=== PATIENT | female | born 1955 | race Caucasian/White ===

== ENCOUNTER → 2020-12-19 | Outpatient (CLI) | payer MEDICARE ==
--- NOTE | 2020-12-19 14:23 | MR ---
EXAMINATION TYPE: MR dillon wo con DATE OF EXAM: 12/19/2020 2:00 PM COMPARISON: NONE HISTORY: Neck pain and Stiffness, Arms fall asleep, Pain in Hands x 10 years. Middle Lower Back Pain x 3 years Multiplanar MultiSpin echo imaging of the cervical spine was performed. Comparison: none C2-C3: No evidence for degenerative disc disease. No disc bulge/herniation or protrusion. No Canal stenosis. Foramina are patent bilaterally. C3-C4: No evidence for degenerative disc disease. No disc bulge/herniation or protrusion. No Canal stenosis. Foramina are patent bilaterally. C4-C5: Mild to moderate decreased signal and loss of height compatible with degenerative disc disease . Right paracentral disc bulge with mild effacement ventral thecal sac and minimal ventral CORD conta ct. No evidence for compressive myelopathy or central stenosis. Degenerative change of the cervical a pophyseal joints resulting in right greater than left foraminal encroachment. C5-C6: Moderate to severe disc desiccation. Posterior disc bulge greatest posterior centrally and to the left with encapsulating spur resulting in disc endplate complex. Mild to moderate central stenosi s identified. No evidence for compressive myelopathy. Severe bilateral neural foraminal encroachment. C6-C7: Mild disc desiccation noted without significant disc bulge. No herniation or protrusion. Bilat eral foraminal encroachment right greater than left. C7-T1: Moderate disc desiccation with the posterocentral disc bulge. Mild effacement ventral thecal s ac. No evidence for central stenosis. No issac disc herniation. Degenerative endplate marrow change. Foramina are patent bilaterally. Cervical segments are intact. There is normal alignment. Cervical spinal cord is of normal signal. Craniovertebral junction relationships are within normal limits. IMPRESSION: 1. Multilevel degenerative disc disease. 2. Central stenosis at C5-6 as noted above. Multilevel foraminal encroachment. EXAMINATION TYPE: MR dillno wo con DATE OF EXAM: 12/19/2020 2:00 PM COMPARISON: NONE HISTORY: Neck pain and Stiffness, Arms fall asleep, Pain in Hands x 10 years. Middle Lower Back Pain x 3 years Multiplanar, MultiSpin echo imaging of the lumbar spine was performed. L1-L2: There is mild decreased signal ossified compatible degenerative disc disease. Mild right parac entral disc bulge without central stenosis, disc herniation or lateral recess stenosis. Mild facet brannon int arthropathy without foraminal encroachment. L2-L3: Normal disc appearance without desiccation. No herniation, protrusion or disc bulging. No ca nal stenosis is present. Foramina are patent bilaterally. L3-L4: Moderate disc desiccation. Broad-based posterocentral subligamentous disc herniation effaces t he ventral thecal sac and results in a mild central stenosis and bilateral lateral recess stenosis. F acet joint arthropathy contributes to mild right greater than left foraminal encroachment. Degenerati ve endplate marrow changes identified. L4-L5: There is mild decreased signal ossified compatible degenerative disc disease. Mild right parac entral disc bulge without central stenosis, disc herniation or lateral recess stenosis. Mild facet brannon int arthropathy without foraminal encroachment. L5-S1: Normal disc appearance without desiccation. No herniation, protrusion or disc bulging. No ca nal stenosis is present. Foramina are patent bilaterally. Lumbar segments are intact. No paraspinal masses are identified. Conus medullaris has a normal appe arance. IMPRESSION: 1. Multilevel degenerative disc disease. 2. Central stenosis identified at L3-4 as noted above.
== END | disposition home or self-care (01) ==
LOC: RADMRIMAIN 12:39
PROVIDERS: ATTEND Orthopaedic Surgery
DX: M51.36 Other intervertebral disc degeneration, lumbar region (principal); M48.02 Spinal stenosis, cervical region; M48.061 Spinal stenosis, lumbar region without neurogenic claudication
CPT/HCPCS: 72141; 72148

== ENCOUNTER → 2021-03-27 | Outpatient (CLI) | payer MEDICARE ==
--- NOTE | 2021-03-27 12:56 | XR ---
EXAMINATION TYPE: XR abdomen 2V DATE OF EXAM: 03/27/2021 COMPARISON: NONE HISTORY: Pain/fall FINDINGS: Cholecystectomy clips. Stool and gas are scattered throughout the colon. Nonspecific, nonob structive bowel gas pattern. No dilated loops of large or small bowel. Degenerative changes of the hi ps and lower lumbar spine. Lung bases appear clear. IMPRESSION: 1. Nonspecific, nonobstructive bowel gas pattern. 2. Cholecystectomy.
--- NOTE | 2021-03-27 13:00 | XR ---
EXAMINATION TYPE: XR chest 2V DATE OF EXAM: 03/27/2021 COMPARISON: NONE HISTORY: Left-sided pain after fall TECHNIQUE: Frontal and lateral views of the chest are obtained. FINDINGS: Heart size is within normal limits. No focal consolidation, pneumothorax or pleural effusi on. Mild crowding of the pulmonary interstitium may be due to low lung volumes. Cholecystectomy clips . Degenerative changes of the thoracic spine. IMPRESSION: 1. No acute pulmonary disease. 2. Cholecystectomy.
== END | disposition home or self-care (01) ==
LOC: RADXRMAIN 11:18
PROVIDERS: ATTEND Nurse Practitioner Family
DX: Z90.49 Acquired absence of other specified parts of digestive tract (principal); R07.9 Chest pain, unspecified; W19.XXXA Unspecified fall, initial encounter
CPT/HCPCS: 71046; 74019

== ENCOUNTER 2021-05-28 12:50 | Emergency (ER) | payer MEDICARE ==
[2021-05-28 13:03] VITALS: RESP 18
--- NOTE | 2021-05-28 13:28 | ED ---
General Adult HPI - General Chief complaint: Abdominal Pain Stated complaint: Lt Side Pain Time Seen by Provider: 05/28/21 13:07 Source: patient, RN notes reviewed Mode of arrival: ambulatory Limitations: no limitations - History of Present Illness Initial comments: Patient is a pleasant 65-year-old female presenting to the emergency Department with left-sided abdominal discomfort. Onset of symptoms was around 4 months ago a couple of days after a fall. Discomfort has been persistent. Patient did have rib x-rays that revealed no abnormality. Patient has had discomfort persistent otherwise. Patient has had a couple episodes of nausea vomiting however not frequently. No fever. No constipation or diarrhea. No history of similar symptoms prior to this. No dyspnea. Patient was scheduled for CT however this has been delayed several times. - Related Data Allergies Allergy/AdvReac Type Severity Reaction Status Date / Time No Known Allergies Allergy Verified 05/28/21 13:03 Review of Systems ROS Statement: Those systems with pertinent positive or pertinent negative responses have been documented in the HPI. ROS Other: All systems not noted in ROS Statement are negative. Constitutional: Denies: fever Eyes: Denies: eye pain ENT: Denies: ear pain Respiratory: Denies: cough, dyspnea Cardiovascular: Denies: chest pain Endocrine: Denies: fatigue Gastrointestinal: Reports: as per HPI, abdominal pain Genitourinary: Denies: dysuria, frequency, hematuria Musculoskeletal: Denies: back pain Skin: Denies: rash Neurological: Denies: weakness Past Medical History Past Medical History: Diabetes Mellitus, Hypertension Additional Past Medical History / Comment(s): fibromyalgia History of Any Multi-Drug Resistant Organisms: None Reported Past Surgical History: Cholecystectomy, Orthopedic Surgery, Tubal Ligation Past Psychological History: No Psychological Hx Reported Smoking Status: Former smoker Past Alcohol Use History: None Reported Past Drug Use History: None Reported General Exam Limitations: no limitations General appearance: alert, in no apparent distress Head exam: Present: normocephalic Eye exam: Present: normal appearance Neck exam: Present: normal inspection Respiratory exam: Present: normal lung sounds bilaterally, chest wall tenderness (Mild tenderness lower ribs anterior lateral and posterior) Cardiovascular Exam: Present: regular rate, normal rhythm GI/Abdominal exam: Present: soft, tenderness (Mild tenderness left upper quadrant) Extremities exam: Present: normal inspection. Absent: pedal edema, calf tenderness Neurological exam: Present: alert Psychiatric exam: Present: normal affect, normal mood Skin exam: Present: normal color Course Vital Signs 05/28/21 12:57 Temperature 98.7 F Pulse Rate 91 Respiratory 18 Rate Blood Pressure 139/73 O2 Sat by Pulse 95 Oximetry EKG Findings - EKG Comments: EKG Findings:: Normal sinus rhythm with rate of 82. [place] 162. QRS 92. QT 368. QTC 429. Normal axis. Normal QRS. No acute ST change. Medical Decision Making - Medical Decision Making Patient reevaluated and resting comfortably in bed. Patient updated on results and need for follow-up. Patient states she does have an appointment with her doctor tomorrow. - Lab Data Result diagrams: 05/28/21 13:30 05/28/21 13:30 Lab Results 05/28/21 05/28/21 05/28/21 Range/Units 13:30 13:30 13:30 WBC 6.8 (3.8-10.6) k/uL RBC 3.97 (3.80-5.40) m/uL Hgb 12.5 (11.4-16.0) gm/dL Hct 38.8 (34.0-46.0) % MCV 97.6 (80.0-100.0) fL MCH 31.4 (25.0-35.0) pg MCHC 32.2 (31.0-37.0) g/dL RDW 13.7 (11.5-15.5) % Plt Count 219 (150-450) k/uL MPV 7.5 Neutrophils % 50 % Lymphocytes % 36 % Monocytes % 6 % Eosinophils % 4 % Basophils % 1 % Neutrophils # 3.4 (1.3-7.7) k/uL Lymphocytes # 2.4 (1.0-4.8) k/uL Monocytes # 0.4 (0-1.0) k/uL Eosinophils # 0.3 (0-0.7) k/uL Basophils # 0.1 (0-0.2) k/uL PT 10.6 (9.0-12.0) sec INR 1.0 (<1.2) APTT 23.7 (22.0-30.0) sec Sodium (137-145) mmol/L Potassium (3.5-5.1) mmol/L Chloride (98-107) mmol/L Carbon Dioxide (22-30) mmol/L Anion Gap mmol/L BUN (7-17) mg/dL Creatinine (0.52-1.04) mg/dL Est GFR (CKD-EPI)AfAm (>60 ml/min/1.73 sqM) Est GFR (CKD-EPI)NonAf (>60 ml/min/1.73 sqM) Glucose (74-99) mg/dL Calcium (8.4-10.2) mg/dL Total Bilirubin (0.2-1.3) mg/dL AST (14-36) U/L ALT (4-34) U/L Alkaline Phosphatase (38-126) U/L Creatine Kinase (30-135) U/L Troponin I (0.000-0.034) ng/mL Total Protein (6.3-8.2) g/dL Albumin (3.5-5.0) g/dL Amylase (30-110) U/L Lipase (23-300) U/L Urine Color Light Yellow Urine Appearance Clear (Clear) Urine pH 5.0 (5.0-8.0) Ur Specific [place] 1.009 (1.001-1.035) Urine Protein Negative (Negative) Urine Glucose (UA) Negative (Negative) Urine Ketones Negative (Negative) Urine Blood Negative (Negative) Urine Nitrite Negative (Negative) Urine Bilirubin Negative (Negative) Urine Urobilinogen <2.0 (<2.0) mg/dL Ur Leukocyte Esterase Negative (Negative) 05/28/21 05/28/21 Range/Units 13:30 13:30 WBC (3.8-10.6) k/uL RBC (3.80-5.40) m/uL Hgb (11.4-16.0) gm/dL Hct (34.0-46.0) % MCV (80.0-100.0) fL MCH (25.0-35.0) pg MCHC (31.0-37.0) g/dL RDW (11.5-15.5) % Plt Count (150-450) k/uL MPV Neutrophils % % Lymphocytes % % Monocytes % % Eosinophils % % Basophils % % Neutrophils # (1.3-7.7) k/uL Lymphocytes # (1.0-4.8) k/uL Monocytes # (0-1.0) k/uL Eosinophils # (0-0.7) k/uL Basophils # (0-0.2) k/uL PT (9.0-12.0) sec INR (<1.2) APTT (22.0-30.0) sec Sodium 137 (137-145) mmol/L Potassium 4.3 (3.5-5.1) mmol/L Chloride 104 (98-107) mmol/L Carbon Dioxide 24 (22-30) mmol/L Anion Gap 9 mmol/L BUN 20 H (7-17) mg/dL Creatinine 0.99 (0.52-1.04) mg/dL Est GFR (CKD-EPI)AfAm 70 (>60 ml/min/1.73 sqM) Est GFR (CKD-EPI)NonAf 61 (>60 ml/min/1.73 sqM) Glucose 148 H (74-99) mg/dL Calcium 9.8 (8.4-10.2) mg/dL Total Bilirubin 0.6 (0.2-1.3) mg/dL AST 70 H (14-36) U/L ALT 71 H (4-34) U/L Alkaline Phosphatase 108 (38-126) U/L Creatine Kinase 332 H (30-135) U/L Troponin I <0.012 (0.000-0.034) ng/mL Total Protein 7.7 (6.3-8.2) g/dL Albumin 4.4 (3.5-5.0) g/dL Amylase 69 (30-110) U/L Lipase 157 (23-300) U/L Urine Color Urine Appearance (Clear) Urine pH (5.0-8.0) Ur Specific [place] (1.001-1.035) Urine Protein (Negative) Urine Glucose (UA) (Negative) Urine Ketones (Negative) Urine Blood (Negative) Urine Nitrite (Negative) Urine Bilirubin (Negative) Urine Urobilinogen (<2.0) mg/dL Ur Leukocyte Esterase (Negative) - Radiology Data Radiology results: report reviewed (Computed tomography scan of chest and ab domen and pelvis reveals no acute process.) Disposition Clinical Impression: Abdominal pain, Rib pain Disposition: HOME SELF-CARE Instructions (If sedation given, give patient instructions): Abdominal Pain (ED), Rib Contusion (ED) Additional Instructions: Please do follow-up to primary care physician tomorrow as planned. Return for increased pain, difficulty breathing, change or worsening symptoms or other concerns. Consider outpatient endoscopy. Consider [id number] Pepcid or Protonix. Is patient prescribed a controlled substance at d/c from ED?: No Referrals: Tahir Castillo DO [Primary Care Provider] - 1-2 days Time of Disposition: 15:58
[2021-05-28 13:50] LABS: Appearance,Urine Clear (Clear); Basophils # (A) 0.1 k/uL (0-0.2); Basophils % (A) 1 %; Bilirubin,Urine Negative (Negative); Blood,Urine Negative (Negative); Color,Urine Light Yellow; Eosinophils # (A) 0.3 k/uL (0-0.7); Eosinophils % (A) 4 %; Glucose,Urine (UA) Negative (Negative); HCT 38.8 % (34.0-46.0); HGB 12.5 gm/dL (11.4-16.0); Ketones,Urine Negative (Negative); Leukocyte Esterase,Urine Negative (Negative); Lymphocytes # (A) 2.4 k/uL (1.0-4.8); Lymphocytes % (A) 36 %; MCH 31.4 pg (25.0-35.0); MCHC 32.2 g/dL (31.0-37.0); MCV 97.6 fL (80.0-100.0); Mean Platelet Volume 7.5; Monocytes # (A) 0.4 k/uL (0-1.0); Monocytes % (A) 6 %; Neutrophils # (A) 3.4 k/uL (1.3-7.7); Neutrophils % (A) 50 %; Nitrite,Urine Negative (Negative); Platelet Count 219 k/uL (150-450); Protein,Urine Negative (Negative); RBC 3.97 m/uL (3.80-5.40); RDW 13.7 % (11.5-15.5); Specific Gravity,Urine 1.009 (1.001-1.035); Urobilinogen,Urine <2.0 mg/dL (<2.0); WBC 6.8 k/uL (3.8-10.6)
[2021-05-28 14:03] LABS: Partial Thromboplastin Time 23.7 sec (22.0-30.0); Prothrombin Time 10.6 sec (9.0-12.0)
[2021-05-28 14:16] LABS: Albumin 4.4 g/dL (3.5-5.0); Calcium 9.8 mg/dL (8.4-10.2); Potassium 4.3 mmol/L (3.5-5.1); Total Bilirubin 0.6 mg/dL (0.2-1.3); Total Protein 7.7 g/dL (6.3-8.2)
--- NOTE | 2021-05-28 15:44 | CT ---
EXAMINATION TYPE: CT ChestAbdPelvis w con DATE OF EXAM: 05/28/2021 COMPARISON: None HISTORY: RUQ pain, worsening since fall [address] DLP: 2589.4 mGycm CONTRAST: Contrast enhanced Trauma CT of the Chest, Abdomen and Pelvis is performed with IV Contrast, patient i njected with 80 mL of Isovue 300. Chest: LUNGS: There is no evidence for pneumothorax. The lungs are clear and free of focal contusion or ate lectasis. No pleural effusion MEDIASTINUM: Thoracic aorta is of normal caliber without CT evidence to suggest traumatic induced ao rtic injury. No mediastinal fluid or blood. No pericardial fluid or cardia abnormality. HILAR STRUCTURES: No evidence for mass. No hilar adenopathy is appreciated. OTHER: No significant abnormality. OSSEOUS: No displaced osseous fractures identified. CT ABDOMEN AND PELVIS FINDINGS: LIVER/GB: No focal laceration, contusion or subcapsular hemorrhage. No calcified gallstones. No s pace occupying hepatic lesion. Biliary tree is of normal caliber. PANCREAS: No evidence for transection. No inflammation. No distinct mass. SPLEEN: No focal laceration, contusion or subcapsular hemorrhage. ADRENALS: No hemorrhage. Left adrenal nodule measures 2.7 cm. The right adrenal gland is unremarkabl e. No thickening. KIDNEYS/BLADDER: No focal laceration, contusion or subcapsular hemorrhage. No hydronephrosis. No n ephrolithiasis. 5.9 cm right renal cyst. 2 cm cyst midpole left kidney. BOWEL: Bowel is intact. No evidence for pneumoperitoneum. GENITAL ORGANS: No gross abnormality. LYMPH NODES: No greater than 1cm abdominal or pelvic lymph nodes areappreciated. AORTA: No traumatic aortic injury visualized. OSSEOUS STRUCTURES: No displaced fracture seen. OTHER: No evidence for hemoperitoneum. IMPRESSION: 1. No evidence for traumatic injury to the chest. 2. No evidence for traumatic injury to the abdomen or pelvis.
[2021-05-28 16:18] VITALS: BP 136/60; PULSE 78; TEMP 98.1
== END 2021-05-28 16:14 | disposition home or self-care (01) ==
LOC: EC 12:50
DX: R10.12 Left upper quadrant pain (principal); R07.81 Pleurodynia; R11.2 Nausea with vomiting, unspecified; E11.9 Type 2 diabetes mellitus without complications; I10 Essential (primary) hypertension; Z87.891 Personal history of nicotine dependence; Z90.49 Acquired absence of other specified parts of digestive tract
CPT/HCPCS: 99284; 36415; 93005; 80053; 82150; 82550; 83690; 84484; 85025; 85610; 85730; 81003; 71260; 74177; Q9967